=== PATIENT | male | born 1950 | race Caucasian/White ===

== ENCOUNTER 2019-10-08 11:36 | Inpatient (IN) | payer MEDICARE, OTHER ==
[~2019-10-08] VITALS: Ht 185.4 cm; Wt 83.5 kg
[2019-10-08] VITALS (10 sets, daily range): BP systolic 112–167; BP diastolic 74–94
--- NOTE | 2019-10-08 11:40 | PHYS DOC ---
Past Medical History Past Medical History: CAD Past Surgical History: Coronary Bypass Surgery Smoking Status: Former Smoker General Adult EDM: Chief Complaint: CHEST PAIN-CARDIAC NATURE HPI: HPI: Patient is a 69-year-old male who presents with 30 to 40 minutes of substernal crushing chest pain radiating to his jaw arms and back. Pain was 10 out of 10 at the most severity and currently 7 after getting 50 mcg of no prior to arrival. Pain was better with the fentanyl and worse with exertion. Patient endorses nausea diaphoresis and shortness of breath. Pain is described as pressure in nature Review of Systems: Review of Systems: Constitutional: Denies fever or chills. [] Eyes: Denies change in visual acuity. [] HENT: Denies nasal congestion or sore throat. [] Respiratory: Complains of shortness of breath Cardiovascular: Complains of chest pain GI: Complains of nausea : Denies dysuria. [] Musculoskeletal: Complains of back pain Integument: Denies rash. [] Neurologic: Denies headache, focal weakness or sensory changes. [] Endocrine: Denies polyuria or polydipsia. [] Lymphatic: Denies swollen glands. [] Psychiatric: Denies depression or anxiety. [] Heart Score: Risk Factors: Risk Factors: DM, Current or recent (<one month) smoker, HTN, HLP, family history of CAD, obesity. Risk Scores: Score 0 - 3: 2.5% MACE over next 6 weeks - Discharge Home Score 4 - 6: 20.3% MACE over next 6 weeks - Admit for Clinical Observation Score 7 - 10: 72.7% MACE over next 6 weeks - Early Invasive Strategies Physical Exam: PE: Constitutional: Well developed, well nourished, moderate distress HENT: Normocephalic, atraumatic, bilateral external ears normal, no trismus, nose normal. [] Eyes: PERRLA, EOMI, conjunctiva normal, no discharge. [] Neck: Normal range of motion, no tenderness, supple, no stridor. [] Cardiovascular:Heart rate regular rhythm, peripheral pulses intact cap refill brisk Lungs & Thorax: Bilateral breath sounds clear, no respiratory distress Abdomen: soft, no tenderness, no masses, no pulsatile masses. [] Skin: Pale and diaphoretic Back: No tenderness, no CVA tenderness. [] Extremities: No tenderness, no cyanosis, no clubbing, ROM intact, no edema. [] Neurologic: Alert and oriented X 3, normal motor function, normal sensory function, no focal deficits noted. [] Psychologic: Affect normal, judgement normal, mood normal. [] Current Patient Data: Labs: Laboratory Tests Test 10/08/19 11:37 White Blood Count 9.7 x10^3/uL Red Blood Count 4.95 x10^6/uL Hemoglobin 14.8 g/dL Hematocrit 44.3 % Mean Corpuscular Volume 90 fL Mean Corpuscular Hemoglobin 30 pg Mean Corpuscular Hemoglobin Concent 34 g/dL Red Cell Distribution Width 13.6 % Platelet Count 267 x10^3/uL Neutrophils (%) (Auto) 36 % Lymphocytes (%) (Auto) 52 % Monocytes (%) (Auto) 8 % Eosinophils (%) (Auto) 3 % Basophils (%) (Auto) 1 % Neutrophils # (Auto) 3.5 x10^3/uL Lymphocytes # (Auto) 5.0 x10^3/uL Monocytes # (Auto) 0.8 x10^3/uL Eosinophils # (Auto) 0.3 x10^3/uL Basophils # (Auto) 0.1 x10^3/uL Sodium Level 137 mmol/L Potassium Level 4.3 mmol/L Chloride Level 102 mmol/L Carbon Dioxide Level 24 mmol/L Anion Gap 11 Blood Urea Nitrogen 20 mg/dL Creatinine 1.5 mg/dL Estimated GFR (Cockcroft-Gault) 46.3 BUN/Creatinine Ratio 13 Glucose Level 116 mg/dL Calcium Level 9.5 mg/dL Total Bilirubin 0.3 mg/dL Aspartate Amino Transf (AST/SGOT) 22 U/L Alanine Aminotransferase (ALT/SGPT) 36 U/L Alkaline Phosphatase 59 U/L Troponin I Quantitative < 0.017 ng/mL Total Protein 6.5 g/dL Albumin 3.8 g/dL Albumin/Globulin Ratio 1.4 Current Medications Medications (Trade) Dose Ordered Sig/Jade Route PRN Reason Start Time Stop Time Status Last Admin Dose Admin Heparin Sodium (Porcine) (Heparin Sodium) 4,000 unit 1X ONCE IV 10/08/19 11:45 10/08/19 11:47 DC 10/08/19 11:49 Heparin Sodium (Porcine) (Heparin Sodium) 10,000 unit STK-MED ONCE .ROUTE 10/08/19 11:47 10/08/19 11:47 DC Ondansetron HCl (Zofran) 4 mg PRN Q8HRS PRN IV NAUSEA/VOMITING 10/08/19 12:00 10/09/19 11:59 Morphine Sulfate (Morphine Sulfate) 4 mg 1X ONCE IV 10/08/19 12:00 10/08/19 12:01 DC 10/08/19 12:03 Ondansetron HCl (Zofran) 4 mg 1X ONCE IVP 10/08/19 12:00 10/08/19 12:01 DC 10/08/19 12:00 Morphine Sulfate (Morphine Sulfate) 4 mg STK-MED ONCE .ROUTE 10/08/19 11:58 10/08/19 11:58 DC Iodixanol (Visipaque 320) 100 ml STK-MED ONCE .ROUTE 10/08/19 11:58 10/08/19 11:58 DC Lidocaine HCl (Lidocaine 1% 20ml Vial) 20 ml STK-MED ONCE .ROUTE 10/08/19 11:58 10/08/19 11:58 DC Heparin Sodium/ Sodium Chloride 1,000 ml @ As Directed STK-MED ONCE .ROUTE 10/08/19 11:58 10/08/19 11:58 DC Fentanyl Citrate (Fentanyl 2ml Vial) 100 mcg STK-MED ONCE .ROUTE 10/08/19 11:59 10/08/19 11:59 DC Midazolam HCl (Versed) 2 mg STK-MED ONCE .ROUTE 10/08/19 12:00 10/08/19 12:00 DC Bivalirudin (Angiomax) 250 mg STK-MED ONCE IV 10/08/19 12:00 10/08/19 12:01 DC Laboratory Tests Test 10/08/19 11:37 White Blood Count 9.7 x10^3/uL Red Blood Count 4.95 x10^6/uL Hemoglobin 14.8 g/dL Hematocrit 44.3 % Mean Corpuscular Volume 90 fL Mean Corpuscular Hemoglobin 30 pg Mean Corpuscular Hemoglobin Concent 34 g/dL Red Cell Distribution Width 13.6 % Platelet Count 267 x10^3/uL Neutrophils (%) (Auto) 36 % Lymphocytes (%) (Auto) 52 % Monocytes (%) (Auto) 8 % Eosinophils (%) (Auto) 3 % Basophils (%) (Auto) 1 % Neutrophils # (Auto) 3.5 x10^3/uL Lymphocytes # (Auto) 5.0 x10^3/uL Monocytes # (Auto) 0.8 x10^3/uL Eosinophils # (Auto) 0.3 x10^3/uL Basophils # (Auto) 0.1 x10^3/uL Sodium Level 137 mmol/L Potassium Level 4.3 mmol/L Chloride Level 102 mmol/L Carbon Dioxide Level 24 mmol/L Anion Gap 11 Blood Urea Nitrogen 20 mg/dL Creatinine 1.5 mg/dL Estimated GFR (Cockcroft-Gault) 46.3 BUN/Creatinine Ratio 13 Glucose Level 116 mg/dL Calcium Level 9.5 mg/dL Total Bilirubin Pending Aspartate Amino Transf (AST/SGOT) Pending Alanine Aminotransferase (ALT/SGPT) Pending Alkaline Phosphatase Pending Total Protein Pending Albumin Pending Albumin/Globulin Ratio Pending Current Medications Medications (Trade) Dose Ordered Sig/Jade Route PRN Reason Start Time Stop Time Status Last Admin Dose Admin Heparin Sodium (Porcine) (Heparin Sodium) 4,000 unit 1X ONCE IV 10/08/19 11:45 10/08/19 11:47 DC 10/08/19 11:49 Heparin Sodium (Porcine) (Heparin Sodium) 10,000 unit STK-MED ONCE .ROUTE 10/08/19 11:47 10/08/19 11:47 DC Ondansetron HCl (Zofran) 4 mg PRN Q8HRS PRN IV NAUSEA/VOMITING 10/08/19 12:00 10/09/19 11:59 Morphine Sulfate (Morphine Sulfate) 4 mg 1X ONCE IV 10/08/19 12:00 10/08/19 12:01 DC Ondansetron HCl (Zofran) 4 mg 1X ONCE IVP 10/08/19 12:00 10/08/19 12:01 DC Morphine Sulfate (Morphine Sulfate) 4 mg STK-MED ONCE .ROUTE 10/08/19 11:58 10/08/19 11:58 DC Iodixanol (Visipaque 320) 100 ml STK-MED ONCE .ROUTE 10/08/19 11:58 10/08/19 11:58 DC Lidocaine HCl (Lidocaine 1% 20ml Vial) 20 ml STK-MED ONCE .ROUTE 10/08/19 11:58 10/08/19 11:58 DC Heparin Sodium/ Sodium Chloride 1,000 ml @ As Directed STK-MED ONCE .ROUTE 10/08/19 11:58 10/08/19 11:58 DC Fentanyl Citrate (Fentanyl 2ml Vial) 100 mcg STK-MED ONCE .ROUTE 10/08/19 11:59 10/08/19 11:59 DC Midazolam HCl (Versed) 2 mg STK-MED ONCE .ROUTE 10/08/19 12:00 10/08/19 12:00 DC Bivalirudin (Angiomax) 250 mg STK-MED ONCE IV 10/08/19 12:00 10/08/19 12:01 DC Vital Signs: Vital Signs Date Time Temp Pulse Resp B/P (MAP) Pulse Ox O2 Delivery O2 Flow Rate FiO2 10/08/19 11:37 98.2 65 22 127/85 (99) 99 Nasal Cannula 2.0 98.2 EKG: EKG: [] EKG interpreted by nj normal sinus rhythm with a rate of [address] depressions T wave inversions in V1 through V4 normal axis Radiology/Procedures: Radiology/Procedures: [][facility] [address] [place] [address] IMAGING REPORT Signed PATIENT: HYUN JENKINS PACCOUNT: [id number] : 1950 LOCATION: ER AGE: 69 SEX: M EXAM STATUS: PRE ER ORD. PHYSICIAN: RHODA BAILEY MD REASON: PROCEDURE: PORTABLE CHEST 1V Single view chest dated 10/08/2019. No comparison available. Clinical data indication: Chest pain. FINDINGS: Single upright portable exam performed. Heart and mediastinal contours within normal limits. Patient is status post median sternotomy. Elevation of left hemidiaphragm. There is some patchy and linear perihilar opacities, nonspecific. No apparent pleural effusion or pneumothorax. IMPRESSION: 1. No acute radiographic abnormality. 2. Mildly prominent perihilar linear markings, nonspecific. Consider acute or chronic bronchial inflammatory process. Electronically signed by: Sudhir Ramirez MD (10/08/2019 12:00 PM) [id number] DICTATED and SIGNED BY: SUDHIR RAMIREZ MD DATE: 10/08/19 1200 Course & Med Decision Making: Course & Med Decision Making Pertinent Labs and Imaging studies reviewed. (See chart for details) 69-year-old male presents with chest pain. Code STEMI was activated prior to arrival and I discussed the case with Dr. WHITE. EKG here reveals more prominent ST depressions in V1 through V4. Patient looks acutely ill and is diaphoretic. His story is very concerning for acute posterior myocardial infarction. Patient received aspirin prior to arrival. Patient was given heparin bolus here and will go to the [facility]. Evaluated by cardiology within 15 minutes of arrival. I discussed case with Dr. Her who admit the patient. Patient to [facility] within 35 minutes of arrival. Several reassessments in the ER and patient remains having significant chest pain. Critical care time was [30] minutes exclusive of procedures. Critical care time was [30] minutes which includes time at bedside, spent in discussion of patient's care with specialist and/or family members, with interpretation of laboratory and/or radiological studies and is exclusive of procedures. Critical condition: Acute posterior ST elevation myocardial infarction Critical interventions: [facility] activation admission to the hospital with heparin bolus. [] Dragon Disclaimer: Dragon Disclaimer: This electronic medical record was generated, in whole or in part, using a voice recognition dictation system. Departure Departure Impression: Primary Impression: Acute ST elevation myocardial infarction (STEMI) of posterior wall Additional Impression: Chest pain Disposition: ADMITTED INPATIENT Admitting Physician: MERY (BHAVESH) Condition: CRITICAL Referrals: UNKNOWN PCP NAME (PCP) Justicifation of Admission Dx: Justifications for Admission: Justification of Admission Dx: Yes NV: Acute STEMI RHODA BAILEY MD Oct 08, 2019 11:40
[2019-10-08] MEDS ORDERED: HEPARIN for IV BOLUS 10,000 UNIT/10 ML VIAL. IV ONE (11:45)
[2019-10-08] MEDS ORDERED: HEPARIN for IV BOLUS 10,000 UNIT/10 ML VIAL. ONE (11:47)
[2019-10-08 11:54] LABS: BASO # 0.1 x10^3/uL (0.0-0.2); BASO % 1 % (0-3); EOS # 0.3 x10^3/uL (0.0-0.7); EOS % 3 % (0-3); HEMATOCRIT 44.3 % (39.0-53.0); HEMOGLOBIN 14.8 g/dL (13.0-17.5); LYMPH % 52 % (24-48); MEAN CORPUSCULAR HEMOGLOBIN 30 pg (25-35); MEAN CORPUSCULAR HGB CONC 34 g/dL (31-37); MEAN CORPUSCULAR VOLUME 90 fL (79-100); MONO # 0.8 x10^3/uL (0.0-1.1); MONO % 8 % (0-9); NEUT # 3.5 x10^3/uL (1.8-7.7); NEUT % 36 % (31-73); PLATELET COUNT 267 x10^3/uL (140-400); RED BLOOD COUNT 4.95 x10^6/uL (4.30-5.70); RED CELL DISTRIBUTION WIDTH 13.6 % (11.5-14.5); WHITE BLOOD COUNT 9.7 x10^3/uL (4.0-11.0)
--- NOTE | 2019-10-08 11:55 | PDOC1 ---
History and Physical Date of Admission Date of Admission DATE: 10/08/19 TIME: 11:55 Identification/Chief Complaint Chief Complaint seen in ER WITH ACUTE STEMI 69-year-old male who presents with 30 to 40 minutes of substernal crushing chest pain radiating to his jaw arms and back. Pain was 10 out of 10 at the most severity and currently 7 after getting 50 mcg of no prior to arrival. Pain was better with the fentanyl and worse with exertion. endorses nausea diaphoresis and shortness of breath EKG CONCERNING FOR INFERIOR NM Past Medical History Past Medical History Past Medical History Past Medical History Past Medical History: CAD Past Surgical History: Coronary Bypass Surgery [facility] Smoking Status: Former Smoker ETOH MINIMAL sees climatologist [facility] FHX CAD Cardiovascular: CAD, Hyperlipidemia Hepatobiliary: No pertinent hx Family History Family History: High Cholestrol, Hypertension Social History Smoke: Quit ALCOHOL: none Drugs: None Current Problem List Problem List Problems Medical Problems: (1) Acute ST elevation myocardial infarction (STEMI) of posterior wall Status: Acute Current Medications Current Medications Current Medications Heparin Sodium (Porcine) (Heparin Sodium) 4,000 unit 1X ONCE IV Last administered on 10/08/19at 11:49; Start 10/08/19 at 11:45; Stop 10/08/19 at 11:47; Status DC Heparin Sodium (Porcine) (Heparin Sodium) 10,000 unit STK-MED ONCE .ROUTE ; Start 10/08/19 at 11:47; Stop 10/08/19 at 11:47; Status DC Ondansetron HCl (Zofran) 4 mg PRN Q8HRS PRN IV NAUSEA/VOMITING; Start 10/08/19 at 12:00; Stop 10/09/19 at 11:59; Status UNV Allergies Allergies: Coded Allergies: No Known Drug Allergies (Unverified , 10/08/19) ROS Review of System Review of Systems: Constitutional: Denies fever or chills. [] Eyes: Denies change in visual acuity. [] HENT: Denies nasal congestion or sore throat. [] Respiratory: Complains of shortness of breath Cardiovascular: Complains of chest pain GI: Complains of nausea : Denies dysuria. [] Musculoskeletal: Complains of back pain Integument: Denies rash. [] Neurologic: Denies headache, focal weakness or sensory changes. [] Endocrine: Denies polyuria or polydipsia. [] Lymphatic: Denies swollen glands. [] Psychiatric: Denies depression or anxiety. [] 14 PT ROS OTHERWISE NEG ALLERGY AND IMMUNOLOGY: No: Hives, Insect Bite Sensitivity, Itchy/Watery Eyes, Nasal Congestion, Post Nasal Drip, Seasonal Allergies, Other Hematological and Lymphatic: No: Bleeding Problems, Blood Clots, Blood Transfusions, Brusing, Night Sweats, Pallor, Swollen Lymph Nodes, Other Cardiovascular: yes Chest Pain; No Palpitations, No Orthopnea, No Paroxysmal Noc. Dyspnea, No Edema, No Lt Headedness, No Other Gastrointestinal: Yes Nausea; No Vomiting, No Abdominal Pain, No Diarrhea, No Constipation, No Melena, No Hematochezia, No Other Musculoskeletal: No Gait Disturbance, No Joint Pain, No Joint Stiffness, No Joint Swelling, No Muscle Pain, No Muscular Weakness, No Pain In:, No Swelling In:, No Other Neurological: No Behavorial Changes, No Bowel/Bladder ControlChng, No Confusion, No Dizziness, No Gait Disturbance, No Headaches, No Impaired Coord/balance, No Memory Loss, No Numbness/Tingling, No Seizures, No Speech Problems, No Tremors, No Visual Changes, No Weakness, No Other Physical Exam Physical Exam Constitutional: Well developed, well nourished, moderate distress HENT: Normocephalic, atraumatic, bilateral external ears normal, no trismus, nose normal. [] Eyes: PERRLA, EOMI, conjunctiva normal, no discharge. [] Neck: Normal range of motion, no tenderness, supple, no stridor. [] Cardiovascular:Heart rate regular rhythm, peripheral pulses intact cap refill brisk Lungs & Thorax: Bilateral breath sounds clear, no respiratory distress Abdomen: soft, no tenderness, no masses, no pulsatile masses. [] Skin: Pale and diaphoretic Back: No tenderness, no CVA tenderness. [] Extremities: No tenderness, no cyanosis, no clubbing, ROM intact, no edema. [] Neurologic: Alert and oriented X 3, normal motor function, normal sensory function, no focal deficits noted. [] Psychologic: Affect normal, judgement normal, mood normal. [] General: Alert, Oriented X3, Cooperative HEENT: Atraumatic, PERRLA, EOMI, Mucous membr. moist/pink Lungs: Clear to auscultation, Normal air movement Heart: RRR, no thrills, no jug vein distention Breasts: Not examined Abdomen: Normal bowel sounds, Soft, No tenderness Rectal Exam: not examined Extremities: No cyanosis Neuro: Normal speech, Cranial nerves 3-12 NL Psych/Mental Status: Mental status NL, Mood NL Images Images Single view chest dated 10/08/2019. No comparison available. Clinical data indication: Chest pain. FINDINGS: Single upright portable exam performed. Heart and mediastinal contours within normal limits. Patient is status post median sternotomy. Elevation of left hemidiaphragm. There is some patchy and linear perihilar opacities, nonspecific. No apparent pleural effusion or pneumothorax. IMPRESSION: 1. No acute radiographic abnormality. 2. Mildly prominent perihilar linear markings, nonspecific. Consider acute or chronic bronchial inflammatory process. Electronically signed by: Sabrina Ramirez MD (10/08/2019 12:00 PM) [id number] DICTATED and SIGNED BY: SABRINA RAMIREZ MD DATE: 10/08/19 1200 VTE Prophylaxis Ordered VTE Prophylaxis Devices: Yes VTE Pharmacological Prophylaxi: Yes Assessment/Plan Assessment/Plan Impression: Acute ST elevation myocardial infarction (STEMI) of posterior wall hx cad post CABG Chest pain UNSTABLE remote tobacco abuse ADMITTED CONSULT CARDIOLOGY Heparin drip ICU BED 40 MIN CC TIME Justicifation of Admission Dx: Justifications for Admission: Justification of Admission Dx: Yes NM: Acute STEMI STORMY OSPINA MD Oct 08, 2019 11:55
[2019-10-08] MEDS ORDERED: LIDOCAINE 1% Multi-Dose 20 ML VIAL. ONE (11:58)
[2019-10-08] MEDS ORDERED: IODIXANOL 320 MG/ML 100 ML VIAL. ONE ×2 (11:58→12:33)
[2019-10-08] MEDS ORDERED: MORPHINE SULFATE 4 MG/ML VIAL. ONE (11:58)
[2019-10-08] MEDS ORDERED: fentaNYL PF VIAL 100 MCG/2 ML VIAL ONE (11:59)
[2019-10-08] MEDS ORDERED: ONDANSETRON PF 4 MG/2 ML VIAL. IV PRN (12:00)
[2019-10-08] MEDS ORDERED: ONDANSETRON PF 4 MG/2 ML VIAL. IVP ONE (12:00)
[2019-10-08] MEDS ORDERED: BIVALIRUDIN 250 MG VIAL. IV ONE ×2 (12:00→13:00)
[2019-10-08] MEDS ORDERED: MIDAZOLAM HCL/PF 2 MG/2 ML VIAL. ONE (12:00)
[2019-10-08] MEDS ORDERED: MORPHINE SULFATE 4 MG/ML VIAL. IV ONE (12:00)
[2019-10-08 12:03] LABS: CALCIUM 9.5 mg/dL (8.5-10.1); CREATININE 1.5 mg/dL (0.7-1.3); GFR 46.3; POTASSIUM 4.3 mmol/L (3.5-5.1)
--- NOTE | 2019-10-08 12:03 | RAD ---
Single view chest dated 10/08/2019. No comparison available. Clinical data indication: Chest pain. FINDINGS: Single upright portable exam performed. Heart and mediastinal contours within normal limits. Patient is status post median sternotomy. Elevation of left hemidiaphragm. There is some patchy and linear perihilar opacities, nonspecific. No apparent pleural effusion or pneumothorax. IMPRESSION: 1. No acute radiographic abnormality. 2. Mildly prominent perihilar linear markings, nonspecific. Consider acute or chronic bronchial inflammatory process. Electronically signed by: Sudhir Ramirez MD (10/08/2019 12:00 PM) [id number]
[2019-10-08 12:10] LABS: ALBUMIN 3.8 g/dL (3.4-5.0); ALBUMIN/GLOBULIN RATIO 1.4 (1.0-1.7); TOTAL BILIRUBIN 0.3 mg/dL (0.2-1.0); TOTAL PROTEIN 6.5 g/dL (6.4-8.2)
[2019-10-08 12:26] LABS: PROTHROMBIN TIME PATIENT 12.5 SEC (11.7-14.0)
[2019-10-08] MEDS ORDERED: ATEN25TA PO (12:37)
[2019-10-08] MEDS ORDERED: IODIXANOL 320 MG/ML 100 ML VIAL. IART ONE (13:00)
[2019-10-08] MEDS ORDERED: fentaNYL PF VIAL 100 MCG/2 ML VIAL IV ONE (13:00)
[2019-10-08] MEDS ORDERED: LIDOCAINE 1% Multi-Dose 20 ML VIAL. INJ ONE (13:00)
[2019-10-08] MEDS ORDERED: MIDAZOLAM HCL/PF 2 MG/2 ML VIAL. IV ONE (13:00)
[2019-10-08] MEDS ORDERED: CLOPIDOGREL BISULFATE 75 MG TABLET ONE ×2 (13:03→13:11)
[2019-10-08] MEDS ORDERED: CLOPIDOGREL BISULFATE 75 MG TABLET PO ONE (13:15)
[2019-10-08] MEDS ORDERED: 0.9 % SODIUM CHLORIDE 10 ML DISP.SYRIN. IV PRN (13:30)
[2019-10-08] MEDS ORDERED: BISACODYL 10 MG SUPP.RECT. PR PRN (13:30)
--- NOTE | 2019-10-08 13:32 | PDOC2 ---
CONSULT Date of Consult Date of Consult DATE: 10/08/19 TIME: 13:32 Reason for Consult Reason for Consult: Acute myocardial infarction Referring Physician Referring Physician: Dr. Her Identification/Chief Complaint Chief Complaint Chest pain Source Source: Chart review, Patient History of Present Illness Reason for Visit: 69-year-old male with history of coronary artery disease s/p CABG 20 to 25 years ago usually followed by cardiology at [facility] presented complaining of retrosternal chest pain that he described as pressure-like and crushing pain, 10/10 severity radiating to his back, jaw and both his arms, starting 1 hour prior to presentation. This is associated with diaphoresis and shortness of breath. He denied any palpitations or syncope. Past Medical History Cardiovascular: CAD, Hyperlipidemia Hepatobiliary: No pertinent hx Family History Family History: High Cholestrol, Hypertension Social History Quit ALCOHOL: none Drugs: None Current Problem List Problem List Problems Medical Problems: (1) Acute ST elevation myocardial infarction (STEMI) of posterior wall Status: Acute (2) Chest pain Status: Acute Current Medications Current Medications Current Medications Heparin Sodium (Porcine) (Heparin Sodium) 4,000 unit 1X ONCE IV Last administered on 10/08/19at 11:49; Start 10/08/19 at 11:45; Stop 10/08/19 at 11:47; Status DC Heparin Sodium (Porcine) (Heparin Sodium) 10,000 unit STK-MED ONCE .ROUTE ; Start 10/08/19 at 11:47; Stop 10/08/19 at 11:47; Status DC Ondansetron HCl (Zofran) 4 mg PRN Q8HRS PRN IV NAUSEA/VOMITING; Start 10/08/19 at 12:00; Stop 10/09/19 at 11:59 Morphine Sulfate (Morphine Sulfate) 4 mg 1X ONCE IV Last administered on 10/08/19at 12:03; Start 10/08/19 at 12:00; Stop 10/08/19 at 12:01; Status DC Ondansetron HCl (Zofran) 4 mg 1X ONCE IVP Last administered on 10/08/19at 12:00; Start 10/08/19 at 12:00; Stop 10/08/19 at 12:01; Status DC Morphine Sulfate (Morphine Sulfate) 4 mg STK-MED ONCE .ROUTE ; Start 10/08/19 at 11:58; Stop 10/08/19 at 11:58; Status DC Iodixanol (Visipaque 320) 100 ml STK-MED ONCE .ROUTE ; Start 10/08/19 at 11:58; Stop 10/08/19 at 11:58; Status DC Lidocaine HCl (Lidocaine 1% 20ml Vial) 20 ml STK-MED ONCE .ROUTE ; Start 10/08/19 at 11:58; Stop 10/08/19 at 11:58; Status DC Heparin Sodium/ Sodium Chloride 1,000 ml @ As Directed STK-MED ONCE .ROUTE ; Start 10/08/19 at 11:58; Stop 10/08/19 at 11:58; Status DC Fentanyl Citrate (Fentanyl 2ml Vial) 100 mcg STK-MED ONCE .ROUTE ; Start 10/08/19 at 11:59; Stop 10/08/19 at 11:59; Status DC Midazolam HCl (Versed) 2 mg STK-MED ONCE .ROUTE ; Start 10/08/19 at 12:00; Stop 10/08/19 at 12:00; Status DC Bivalirudin (Angiomax) 250 mg STK-MED ONCE IV ; Start 10/08/19 at 12:00; Stop 10/08/19 at 12:01; Status DC Iodixanol (Visipaque 320) 100 ml STK-MED ONCE .ROUTE ; Start 10/08/19 at 12:33; Stop 10/08/19 at 12:33; Status DC Heparin Sodium/ Sodium Chloride (HEPARIN for ARTERIAL LINE FLUSH) 1,000 unit 1X ONCE IART ; Start 10/08/19 at 13:00; Stop 10/08/19 at 13:01; Status DC Midazolam HCl (Versed) 2 mg 1X ONCE IV Last administered on 10/08/19at 13:15; Start 10/08/19 at 13:00; Stop 10/08/19 at 13:01; Status DC Fentanyl Citrate (Fentanyl 2ml Vial) 100 mcg 1X ONCE IV Last administered on 10/08/19at 13:15; Start 10/08/19 at 13:00; Stop 10/08/19 at 13:01; Status DC Iodixanol (Visipaque 320) 100 ml 1X ONCE IART Last administered on 10/08/19at 13:14; Start 10/08/19 at 13:00; Stop 10/08/19 at 13:01; Status DC Bivalirudin (Angiomax) 250 mg 1X ONCE IV Last administered on 10/08/19at 13:15; Start 10/08/19 at 13:00; Stop 10/08/19 at 13:01; Status DC Lidocaine HCl (Lidocaine 1% 20ml Vial) 20 ml 1X ONCE INJ Last administered on 10/08/19at 13:14; Start 10/08/19 at 13:00; Stop 10/08/19 at 13:01; Status DC Clopidogrel Bisulfate (Plavix) 75 mg STK-MED ONCE .ROUTE ; Start 10/08/19 at 13 :03; Stop 10/08/19 at 13:03; Status DC Clopidogrel Bisulfate (Plavix) 600 mg 1X ONCE PO Last administered on 10/08/19at 13:14; Start 10/08/19 at 13:15; Stop 10/08/19 at 13:16; Status DC Clopidogrel Bisulfate (Plavix) 75 mg STK-MED ONCE .ROUTE ; Start 10/08/19 at 13:11; Stop 10/08/19 at 13:11; Status DC Atenolol (Tenormin) 25 mg DAILY PO ; Start 10/08/19 at 14:00 Lorazepam (Ativan Inj) 0.5 mg PRN Q6HRS PRN IVP ANXIETY / AGITATION; Start 10/08/19 at 13:30; Status UNV Famotidine (Pepcid) 20 mg BID PO ; Start 10/08/19 at 21:00; Status UNV Info (Icu Electrolyte Protocol) 1 ea DAILY MC ; Start 10/09/19 at 09:00; Status UNV Sodium Chloride (Normal Saline Flush) 3 ml QSHIFT PRN IV AFTER MEDS AND BLOOD DRAWS; Start 10/08/19 at 13:30; Status UNV Acetaminophen/ Hydrocodone Bitart (Lortab 5/325) 1 tab PRN Q4HRS PRN PO MILD PAIN, 2ND CHOICE; Start 10/08/19 at 13:30; Status UNV Senna/Docusate Sodium (Senna Plus) 1 tab BID PO ; Start 10/08/19 at 21:00; Status UNV Bisacodyl (Dulcolax Supp) 10 mg PRN DAILY PRN [place] CONSTIPATION; Start 10/08/19 at 13:30; Status UNV Active Scripts Active Reported Atenolol 25 Mg Tablet 1 Tab PO DAILY Allergies Allergies: Coded Allergies: No Known Drug Allergies (Unverified , 10/08/19) ROS PSYCHOLOGICAL ROS: No: Hallucinations Eyes: No Loss of vision HEENT: No: Epistaxis Respiratory: YES: Shortness of breath; No: Hemoptysis Cardiovascular: yes Chest Pain; No Palpitations Gastrointestinal: No Vomiting, No Diarrhea Genitourinary: No Hematuria Neurological: No Seizures Skin: No Rash Physical Exam General: Alert, Oriented X3 HEENT: Atraumatic Lungs: Clear to auscultation Heart: Regular rate Abdomen: Soft Extremities: No edema Neuro: Normal speech Psych/Mental Status: Mood NL Vitals VITALS Vital Signs Date Time Temp Pulse Resp B/P (MAP) Pulse Ox O2 Delivery O2 Flow Rate FiO2 10/08/19 13:22 67 15 99 Nasal Cannula 2.0 10/08/19 11:57 130/86 (101) 10/08/19 11:37 98.2 98.2 Labs Labs Laboratory Tests Test 10/08/19 11:37 10/08/19 11:40 White Blood Count 9.7 x10^3/uL (4.0-11.0) Red Blood Count 4.95 x10^6/uL (4.30-5.70) Hemoglobin 14.8 g/dL (13.0-17.5) Hematocrit 44.3 % (39.0-53.0) Mean Corpuscular Volume 90 fL (79-100) Mean Corpuscular Hemoglobin 30 pg (25-35) Mean Corpuscular Hemoglobin Concent 34 g/dL (31-37) Red Cell Distribution Width 13.6 % (11.5-14.5) Platelet Count 267 x10^3/uL (140-400) Neutrophils (%) (Auto) 36 % (31-73) Lymphocytes (%) (Auto) 52 % (24-48) Monocytes (%) (Auto) 8 % (0-9) Eosinophils (%) (Auto) 3 % (0-3) Basophils (%) (Auto) 1 % (0-3) Neutrophils # (Auto) 3.5 x10^3/uL (1.8-7.7) Lymphocytes # (Auto) 5.0 x10^3/uL (1.0-4.8) Monocytes # (Auto) 0.8 x10^3/uL (0.0-1.1) Eosinophils # (Auto) 0.3 x10^3/uL (0.0-0.7) Basophils # (Auto) 0.1 x10^3/uL (0.0-0.2) Prothrombin Time 12.5 SEC (11.7-14.0) Prothromb Time International Ratio 1.0 (0.8-1.1) Activated Partial Thromboplast Time 25 SEC (24-38) Sodium Level 137 mmol/L (136-145) Potassium Level 4.3 mmol/L (3.5-5.1) Chloride Level 102 mmol/L (98-107) Carbon Dioxide Level 24 mmol/L (21-32) Anion Gap 11 (6-14) Blood Urea Nitrogen 20 mg/dL (8-26) Creatinine 1.5 mg/dL (0.7-1.3) Estimated GFR (Cockcroft-Gault) 46.3 BUN/Creatinine Ratio 13 (6-20) Glucose Level 116 mg/dL (70-99) Calcium Level 9.5 mg/dL (8.5-10.1) Total Bilirubin 0.3 mg/dL (0.2-1.0) Aspartate Amino Transf (AST/SGOT) 22 U/L (15-37) Alanine Aminotransferase (ALT/SGPT) 36 U/L (16-63) Alkaline Phosphatase 59 U/L (46-116) Troponin I Quantitative < 0.017 ng/mL (0.000-0.055) AE-Ofv-G-Type Natriuretic Peptide 170 pg/mL (0-124) Total Protein 6.5 g/dL (6.4-8.2) Albumin 3.8 g/dL (3.4-5.0) Albumin/Globulin Ratio 1.4 (1.0-1.7) SARS-CoV-2 Antigen (Rapid) Negative (NEGATIVE) Laboratory Tests Test 10/08/19 11:37 10/08/19 11:40 White Blood Count 9.7 x10^3/uL (4.0-11.0) Red Blood Count 4.95 x10^6/uL (4.30-5.70) Hemoglobin 14.8 g/dL (13.0-17.5) Hematocrit 44.3 % (39.0-53.0) Mean Corpuscular Volume 90 fL (79-100) Mean Corpuscular Hemoglobin 30 pg (25-35) Mean Corpuscular Hemoglobin Concent 34 g/dL (31-37) Red Cell Distribution Width 13.6 % (11.5-14.5) Platelet Count 267 x10^3/uL (140-400) Neutrophils (%) (Auto) 36 % (31-73) Lymphocytes (%) (Auto) 52 % (24-48) Monocytes (%) (Auto) 8 % (0-9) Eosinophils (%) (Auto) 3 % (0-3) Basophils (%) (Auto) 1 % (0-3) Neutrophils # (Auto) 3.5 x10^3/uL (1.8-7.7) Lymphocytes # (Auto) 5.0 x10^3/uL (1.0-4.8) Monocytes # (Auto) 0.8 x10^3/uL (0.0-1.1) Eosinophils # (Auto) 0.3 x10^3/uL (0.0-0.7) Basophils # (Auto) 0.1 x10^3/uL (0.0-0.2) Prothrombin Time 12.5 SEC (11.7-14.0) Prothromb Time International Ratio 1.0 (0.8-1.1) Activated Partial Thromboplast Time 25 SEC (24-38) Sodium Level 137 mmol/L (136-145) Potassium Level 4.3 mmol/L (3.5-5.1) Chloride Level 102 mmol/L (98-107) Carbon Dioxide Level 24 mmol/L (21-32) Anion Gap 11 (6-14) Blood Urea Nitrogen 20 mg/dL (8-26) Creatinine 1.5 mg/dL (0.7-1.3) Estimated GFR (Cockcroft-Gault) 46.3 BUN/Creatinine Ratio 13 (6-20) Glucose Level 116 mg/dL (70-99) Calcium Level 9.5 mg/dL (8.5-10.1) Total Bilirubin 0.3 mg/dL (0.2-1.0) Aspartate Amino Transf (AST/SGOT) 22 U/L (15-37) Alanine Aminotransferase (ALT/SGPT) 36 U/L (16-63) Alkaline Phosphatase 59 U/L (46-116) Troponin I Quantitative < 0.017 ng/mL (0.000-0.055) LJ-Vjn-Y-Type Natriuretic Peptide 170 pg/mL (0-124) Total Protein 6.5 g/dL (6.4-8.2) Albumin 3.8 g/dL (3.4-5.0) Albumin/Globulin Ratio 1.4 (1.0-1.7) SARS-CoV-2 Antigen (Rapid) Negative (NEGATIVE) Assessment/Plan Assessment/Plan 1. Acute posterior wall myocardial infarction in a patient with known history of coronary artery disease s/p CABG (bilateral internal mammaries were used for CABG per patient, no vein grafts). He has ongoing chest pain. Start aspirin, heparin, beta-blockers, statins and proceed with emergent cardiac catheterization and possible primary PCI/stent placement. Risks and benefits were explained and he is agreeable. 2. Hypertension: Controlled 3. Hyperlipidemia: Statins Thank you for your consultation. TERRENCE DE LA GARZA MD Oct 08, 2019 13:32
[2019-10-08] MEDS ORDERED: IV 1/2 NORMAL SALINE 1,000 ML IV SCH (13:33)
--- NOTE | 2019-10-08 13:33 | PDOC ---
MODERATE SEDATION ASSESSMENT RISKS/ALTERNATIVES Risks/Alternatives Risks and alternatives of this type of sedation and procedure discussed with: RISK/ALTERNATIVES: Patient H & P ON CHART H & P H & P on chart and reviewed for co-morbid conditions and appropriate labs. H&P ON CHART: Yes STATUS PREG STATUS ASSESSED: N/A MEDS/ALLERGIES REVIEWED Meds/Allergies Reviewed Medications and Allergies including time and route of recently administered narcotics and sedatives. MEDS/ALLERGIES REVIEWED: Yes ASA RATING ASA RATING: III AIRWAY ASSESSMENT Airway Assessment Airway patency, oral function limitations, presence of caps, crowns, dentures, partials, and ability to extend neck assessed. AIRWAY ASSESSMENT: Yes MALLAMPATI SCORE MALLAMPATI SCORE: II PRE-SEDATION ASSESSMENT PRE-SEDATION ASSESSMENT: Yes TERRENCE DE LA GARZA MD Oct 08, 2019 13:33
[2019-10-08] MEDS ORDERED: NITROGLYCERIN SUBLINGUAL 0.4 MG BOTTLE OF 25. SL PRN (13:45)
[2019-10-08] MEDS ORDERED: ATENOLOL 25 MG TABLET. PO SCH ×2 (14:00→14:45)
--- NOTE | 2019-10-08 14:00 | CARD ---
MR#: [id number] Date of Study: 10/08/2019 Ordering Physician: TERRENCE HANLEY, Referring Physician: TERRENCE HANLEY, Tech: RT Eliezer (R) KALEB APPROVED REPORT Technologist: RT Eliezer (R) KALEB Nurse: Ana Martins R.N. Procedure(s) performed: 1. Left heart catheterization, selective coronary angiography and selective angiography of the bypass graft 2. Successful complex PCI/drug-eluting stent placement to the left circumflex artery FLUORO TIME: 20.2 MIN DOSE: 143 Gycm2 Contrast 266ml Visi Mod Sedation: 65 min INDICATION The indication(s) include : Acute posterior wall myocardial infarction. [facility] Clinical Frailty Scale [facility] Clinical Frailty Scale: Mildly Frail Heart Failure Heart Failure: No If Yes, Newly Diagnosed: No PROCEDURE NARRATIVE After explaining the risks, benefits and alternative options, and informed consent was obtained from patient. Patient was brought to the cardiac [employer] and his right groin was prepped and draped in t he usual fashion. 20 cc of 2% lidocaine was infiltrated to the skin and subcutaneous tissues for loc al anesthesia. Arterial access was obtained in the right common femoral artery and a 6 American sheath was inserted. 6 American JR4 catheter was used to perform selective angiography of the right coronary artery and left internal mammary graft to the left anterior descending artery. Since patient stated that his right internal mammary artery graft was also used for bypass surgery, right subclavian kimberlyn ography was performed. Since we did not visualize MITCHELL, aortic root angiography was performed at the end of procedure. After initial unsuccessful attempts at engaging the left main coronary artery usi ng 6 American JL4 catheter followed by 6 American XB 3.5 guide catheter, this was successfully engaged wi th a 6 American AL-1 guide catheter and selective angiography was performed. LVEDP and transaortic gra dients were measured. Left ventriculography was not performed due to contrast load used during the p rocedure. The following findings were noted: FINDINGS 1. Hemodynamics: Elevated left ventricular end-diastolic pressure of 23 mmHg consistent with mild ac favio diastolic heart failure. No pullback gradient across the aortic valve. 2. Coronary and bypass graft angiography: a. The left main coronary artery arose from the left sinus of Valsalva, gave rise to the left anteri or descending and left circumflex arteries and did not show any significant stenosis. b. The left anterior descending artery showed 100% occlusion in the midsegment. c. The left circumflex artery showed a critical 99% stenosis involving the very proximal segment wit h MONISHA I flow distally. d. The right coronary artery arose from the right sinus of Valsalva, was tortuous and showed 40% royce nosis in the midsegment. e. The left internal mammary graft to the left anterior descending artery was patent. Distal to the anastomosis, the left anterior descending artery was a small to medium caliber vessel. f. The right internal mammary artery graft that was likely anastomosed with left circumflex artery w as not visualized on subclavian angiography and aortic root angiography and probably occluded. INTERVENTION The left main coronary artery was engaged with AL-1 guide catheter. The critical stenosis involving the very proximal segment of the left circumflex artery was crossed with a 0.014 inch [employer] pro-water guidewire. This was predilated with a 3.0 x 15 mm Euphora balloon. This was then treated with a 3. 5 x 18 mm resolute Vignesh drug-eluting stent. The midportion of the stent was postdilated with a 3.75 x 15 mm noncompliant NC trek balloon. Follow-up angiography showed resolution of the lesion with JUNITO I-3 distal flow. Patient tolerated the procedure well. Hemostasis was achieved using Angio-Seal. T here were no immediate complications. MONISHA Flow MONISHA Flow (Pre-Intervention): MONISHA-1 MONISHA Flow (Post-Intervention): MONISHA-3 Conclusion 1. Coronary artery disease s/p CABG with patent LAM to LAD, occluded MITCHELL probably anastomosed to L Cx, 99% stenosis involving proximal segment of LCx and 40% stenosis in ungrafted RCA 2. Successful PCI/drug-eluting stent placement to the left circumflex artery Recommendations 1. Aspirin 325 mg daily for 1 month followed by 81 mg daily 2. Plavix 75 mg daily 3. Cardiovascular risk factor modification and cardiac rehabilitation referral Signed by : Terrence Hanley, Electronically Approved : 10/08/2019 13:59:25
[2019-10-08] MEDS ORDERED: BUPR150T15 PO (14:38)
[2019-10-08] MEDS ORDERED: METO25TA4 PO (14:38)
[2019-10-08] MEDS ORDERED: FLUT9.9S NS (14:38)
[2019-10-08] MEDS ORDERED: FAMO-63 PO (14:38)
[2019-10-08] MEDS ORDERED: LIPITOR80 MG PO (14:38)
[2019-10-08] MEDS ORDERED: MONT10TA49 PO (14:38)
[2019-10-08] MEDS ORDERED: FLUT1DIS5 IH (14:38)
[2019-10-08] MEDS ORDERED: METO-239 PO (16:39)
[2019-10-08] MEDS ORDERED: METOPROLOL SUCC 24HR ER 25 MG TAB.ER.24H. PO PRN (16:45)
[2019-10-08] MEDS ORDERED: ASPIRIN CHEWABLE 81 MG TABLET. PO ONE (18:30)
[2019-10-08] MEDS: BUDESONIDE 0.5 MG/2 ML NEBU. NEB SCH (20:03)
[2019-10-08] MEDS: ALBUTEROL SULFATE 2.5 MG/3 ML NEBU. NEB SCH (20:03)
[2019-10-08] MEDS: MONTELUKAST SODIUM 10 MG TABLET. PO SCH (20:53)
[2019-10-08] MEDS: ATORVASTATIN CALCIUM 40 MG TABLET. PO SCH (20:53)
[2019-10-08] MEDS: SENNOSIDES/DOCUSATE 8.6/50MG TABLET. PO SCH (20:53)
[2019-10-08] MEDS: FAMOTIDINE 20 MG TABLET. PO SCH (20:53)
[2019-10-08] MEDS: METOPROLOL TART IMMED RELEASE 25 MG TABLET. PO SCH (20:55)
[2019-10-08] MEDS ORDERED: FAMOTIDINE 20 MG TABLET. PO SCH (21:00)
[2019-10-08] MEDS ORDERED: ATORVASTATIN CALCIUM 40 MG TABLET. PO SCH (21:00)
[2019-10-08] MEDS ORDERED: NON FORMULARY ITEM (Fluticasone/Salmeterol (Advair 500-50 Diskus) 1 PUFF) IH SCH (21:00)
[2019-10-08] MEDS: HYDROcodone/APAP 5/325MG 1 TAB TABLET PO PRN (21:26)
[2019-10-08] MEDS: ZOLPIDEM 5 MG TABLET. PO PRN (23:57)
[2019-10-09] VITALS (18 sets, daily range): BP systolic 107–138; BP diastolic 65–85
[2019-10-09] MEDS: HYDROcodone/APAP 5/325MG 1 TAB TABLET PO PRN ×4 (01:32→21:15)
[2019-10-09 04:55] LABS: BASO % 0 % (0-3); EOS # 0.3 x10^3/uL (0.0-0.7); EOS % 4 % (0-3); HEMATOCRIT 42.1 % (39.0-53.0); HEMOGLOBIN 13.9 g/dL (13.0-17.5); LYMPH # 2.2 x10^3/uL (1.0-4.8); LYMPH % 27 % (24-48); MEAN CORPUSCULAR HEMOGLOBIN 30 pg (25-35); MEAN CORPUSCULAR HGB CONC 33 g/dL (31-37); MEAN CORPUSCULAR VOLUME 90 fL (79-100); MONO # 0.8 x10^3/uL (0.0-1.1); MONO % 10 % (0-9); NEUT # 4.7 x10^3/uL (1.8-7.7); NEUT % 59 % (31-73); PLATELET COUNT 217 x10^3/uL (140-400); RED BLOOD COUNT 4.69 x10^6/uL (4.30-5.70); RED CELL DISTRIBUTION WIDTH 13.6 % (11.5-14.5)
[2019-10-09 05:13] LABS: CALCIUM 8.5 mg/dL (8.5-10.1); CREATININE 1.2 mg/dL (0.7-1.3); GFR 59.9; POTASSIUM 4.4 mmol/L (3.5-5.1)
[2019-10-09 05:14] LABS: CHOLESTEROL/HDL RATIO 2.5
[2019-10-09] MEDS: ELECTROLYTE (ICU) PROTOCOL. MC SCH (09:00)
[2019-10-09] MEDS: ALBUTEROL SULFATE 2.5 MG/3 ML NEBU. NEB SCH ×4 (09:04→19:46)
[2019-10-09] MEDS: BUDESONIDE 0.5 MG/2 ML NEBU. NEB SCH ×2 (09:04→19:47)
[2019-10-09] MEDS: SENNOSIDES/DOCUSATE 8.6/50MG TABLET. PO SCH ×2 (09:21→20:33)
[2019-10-09] MEDS: FAMOTIDINE 20 MG TABLET. PO SCH ×2 (09:21→20:32)
[2019-10-09] MEDS: METOPROLOL TART IMMED RELEASE 25 MG TABLET. PO SCH ×2 (09:21→20:32)
[2019-10-09] MEDS: ASPIRIN ENTERIC COATED 325 MG TABLET.DR. PO SCH (09:21)
[2019-10-09] MEDS: buPROPion XL 150 MG TAB.ER.24H. PO SCH (09:22)
[2019-10-09] MEDS: FLUTICASONE 50MCG/NASAL SPRAY 16GM BOTTLE. NS SCH (09:22)
[2019-10-09] MEDS: CLOPIDOGREL BISULFATE 75 MG TABLET PO SCH (09:25)
--- NOTE | 2019-10-09 10:01 | NUR ---
SS following for discharge planning. SS reviewed pt chart and discussed with pt RN. Pt is from home with spouse and is currently on room air. Pt had STEMI and having ECHO today. COVID19 negative. Discharge plan is to home when medically ready. SS will continue to follow for discharge planning.
--- NOTE | 2019-10-09 12:24 | PDOC ---
[employer] PROGRESS NOTE Date of Service DOS: DATE: 10/09/19 TIME: 12:18 Chief Complaint Chief Complaint Chest pain STEMI History of Present Illness History of Present Illness 10/09/19 Patient seen and examined in ICU Discussed with RN Discussed with Patient was pleasantly making conversation during visit Patient had a PCI/drug eluting stent placed on LAD yesterday Vitals/I&O Vitals/I&O: Vital Signs Date Time Temp Pulse Resp B/P (MAP) Pulse Ox O2 Delivery O2 Flow Rate FiO2 10/09/19 11:00 75 132/83 (99) 96 Room Air 10/09/19 10:00 98.3 98.3 10/09/19 06:00 16 10/08/19 13:22 2.0 I & O 10/08/19 10/08/19 10/09/19 15:00 23:00 07:00 Intake Total 100 ml 900 ml 680 ml Output Total 150 ml 1100 ml 1275 ml Balance -50 ml -200 ml -595 ml Physical Exam General: Alert, Oriented X3 Heart: Regular rate Abdomen: Soft Extremities: No edema Skin: No significant lesion Labs Labs: Laboratory Tests Test 10/09/19 04:20 White Blood Count 8.0 x10^3/uL (4.0-11.0) Red Blood Count 4.69 x10^6/uL (4.30-5.70) Hemoglobin 13.9 g/dL (13.0-17.5) Hematocrit 42.1 % (39.0-53.0) Mean Corpuscular Volume 90 fL (79-100) Mean Corpuscular Hemoglobin 30 pg (25-35) Mean Corpuscular Hemoglobin Concent 33 g/dL (31-37) Red Cell Distribution Width 13.6 % (11.5-14.5) Platelet Count 217 x10^3/uL (140-400) Neutrophils (%) (Auto) 59 % (31-73) Lymphocytes (%) (Auto) 27 % (24-48) Monocytes (%) (Auto) 10 % (0-9) Eosinophils (%) (Auto) 4 % (0-3) Basophils (%) (Auto) 0 % (0-3) Neutrophils # (Auto) 4.7 x10^3/uL (1.8-7.7) Lymphocytes # (Auto) 2.2 x10^3/uL (1.0-4.8) Monocytes # (Auto) 0.8 x10^3/uL (0.0-1.1) Eosinophils # (Auto) 0.3 x10^3/uL (0.0-0.7) Basophils # (Auto) 0.0 x10^3/uL (0.0-0.2) Sodium Level 137 mmol/L (136-145) Potassium Level 4.4 mmol/L (3.5-5.1) Chloride Level 103 mmol/L (98-107) Carbon Dioxide Level 27 mmol/L (21-32) Anion Gap 7 (6-14) Blood Urea Nitrogen 14 mg/dL (8-26) Creatinine 1.2 mg/dL (0.7-1.3) Estimated GFR (Cockcroft-Gault) 59.9 Glucose Level 90 mg/dL (70-99) Calcium Level 8.5 mg/dL (8.5-10.1) Triglycerides Level 72 mg/dL (0-150) Cholesterol Level 140 mg/dL (0-200) LDL Cholesterol, Calculated 70 mg/dL (0-100) VLDL Cholesterol, Calculated 14 mg/dL (0-40) Non-HDL Cholesterol Calculated 84 mg/dL (0-129) HDL Cholesterol 56 mg/dL (40-60) Cholesterol/HDL Ratio 2.5 Assessment and Plan Assessmemt and Plan Problems Medical Problems: (1) Acute ST elevation myocardial infarction (STEMI) of posterior wall Status: Acute (2) Chest pain Status: Acute Assessment: STEMI Chest pain Plan: Continue ICU monitoring Full code Cardiac monitoring DVT prophylaxis Await for cardiology input regarding discharge Await echo results Appreciate subspecialist input Comment Review of Relevant I have reviewed the following items tomas (where applicable) has been applied. Medications: Current Medications Medications (Trade) Dose Ordered Sig/Jade Route PRN Reason Start Time Stop Time Status Last Admin Dose Admin Midazolam HCl (Versed) 2 mg 1X ONCE IV 10/08/19 13:00 10/08/19 13:01 DC 10/08/19 13:15 Fentanyl Citrate (Fentanyl 2ml Vial) 100 mcg 1X ONCE IV 10/08/19 13:00 10/08/19 13:01 DC 10/08/19 13:15 Iodixanol (Visipaque 320) 100 ml 1X ONCE IART 10/08/19 13:00 10/08/19 13:01 DC 10/08/19 13:14 Bivalirudin (Angiomax) 250 mg 1X ONCE IV 10/08/19 13:00 10/08/19 13:01 DC 10/08/19 13:15 Lidocaine HCl (Lidocaine 1% 20ml Vial) 20 ml 1X ONCE INJ 10/08/19 13:00 10/08/19 13:01 DC 10/08/19 13:14 Clopidogrel Bisulfate (Plavix) 600 mg 1X ONCE PO 10/08/19 13:15 10/08/19 13:16 DC 10/08/19 13:14 Famotidine (Pepcid) 20 mg BID PO 10/08/19 21:00 10/09/19 09:21 Info (Icu Electrolyte Protocol) 1 ea DAILY MC 10/09/19 09:00 10/09/19 09:00 Acetaminophen/ Hydrocodone Bitart (Lortab 5/325) 1 tab PRN Q4HRS PRN PO MILD PAIN, 2ND CHOICE 10/08/19 13:30 10/09/19 09:30 Senna/Docusate Sodium (Senna Plus) 1 tab BID PO 10/08/19 21:00 10/09/19 09:21 Sodium Chloride 1,000 ml @ 100 mls/hr Q10H IV 10/08/19 13:33 10/08/19 23:32 DC 10/08/19 13:33 Aspirin (Ecotrin) 325 mg DAILYWBKFT PO 10/09/19 08:00 10/09/19 09:21 Clopidogrel Bisulfate (Plavix) 75 mg DAILYWBKFT PO 10/09/19 08:00 10/09/19 09:25 Atenolol (Tenormin) 12.5 mg BID PO 10/08/19 14:45 10/08/19 17:25 DC 10/08/19 14:45 Bupropion HCl (Wellbutrin Xl) 150 mg DAILYWBKFT PO 10/09/19 08:00 10/09/19 09:22 Montelukast Sodium (Singulair) 10 mg HS PO 10/08/19 21:00 10/08/19 20:53 Atorvastatin Calcium (Lipitor) 80 mg QHS PO 10/08/19 21:00 10/08/19 20:53 Fluticasone Propionate (Flonase) 2 spray DAILY NS 10/09/19 09:00 10/09/19 09:22 Zolpidem Tartrate (Ambien) 5 mg PRN QHS PRN PO INSOMNIA 10/08/19 16:45 10/08/19 23:57 Albuterol Sulfate (Ventolin Neb Soln) 2.5 mg Q6HRS NEB 10/08/19 18:00 10/09/19 09:04 Budesonide (Pulmicort) 0.5 mg RTBID NEB 10/08/19 20:00 10/09/19 09:04 Metoprolol Tartrate (Lopressor) 12.5 mg BID PO 10/08/19 21:00 10/09/19 09:21 Aspirin (Aspirin Chewable) 324 mg 1X ONCE PO 10/08/19 18:30 10/08/19 18:31 DC 10/08/19 18:27 Justicifation of Admission Dx: Justifications for Admission: Justification of Admission Dx: Yes ID: Acute STEMI MYRON GANN III DO Oct 09, 2019 12:24
--- NOTE | 2019-10-09 15:21 | CARD ---
MR#: [id number] Date of Study: 10/09/2019 Ordering Physician: TERRENCE DE LA GARZA, Referring Physician: TERRENCE DE LA GARZA, Tech: Rajani Stephens APPROVED REPORT EXAM: Two-dimensional and M-mode echocardiogram with Doppler and color Doppler. Other Information Quality : AverageHR: 67bpm Technically limited study due to body habitus. INDICATION Acute AR STEMI 2D DIMENSIONS Left Atrium(2D)4.3 (1.6-4.0cm)IVSd1.2 (0.7-1.1cm) Aortic Root(2D)3.6 (2.0-3.7cm)LVDd4.7 (3.9-5.9cm) LVOT Diameter2.2 (1.8-2.4cm)PWd1.3 (0.7-1.1cm) LVDs3.5 (2.5-4.0cm)FS (%) 24.5 % SV49.5 mlLVEF(%)48.7 (>50%) Aortic Valve AoV Peak Vick.122.3cm/sAoV VTI21.7cm AO Peak GR.6.0mmHgLVOT VTI 18.13cm AO Mean GR.3mmHg Mitral Valve MV E Peak Gr.5mmHgMV E Mean Gr.1mmHg TDI Lateral E' P. V6.56cm/sMedial E' P. V6.89cm/s Tricuspid Valve TR P. [id number]/sRAP [id number] TR Peak Gr.52azByBUNO23adPz Pulmonary Vein S1 Zjavmmll90.6cm/sS2 Jsdzqaeh54.79cm/s D2 Avyqdwwj78.8cm/sPVa [id number] LEFT VENTRICLE The left ventricle is normal size. There is mild concentric left ventricular hypertrophy. The systoli c function is low normal. EF 50% There is slight global hypokinesis of the left ventricle. Transmitra l Doppler flow pattern is Grade II-pseudonormal filling dynamics. RIGHT VENTRICLE The right ventricle is normal size. There is normal right ventricular wall thickness. The right ventr icular systolic function is normal. ATRIA The left atrium is borderline dilated. The right atrium size is normal. The interatrial septum is int act with no evidence for an atrial septal defect or patent foramen ovale as noted on 2-D or Doppler i norm. AORTIC VALVE The aortic valve is normal in structure and function. Doppler and Color Flow revealed trace aortic re gurgitation. There is no significant aortic valvular stenosis. Calculated aortic valve area is 3.3 cm 2 with maximum pressure gradient of 6 mmHg and mean pressure gradient of 3 mmHg. MITRAL VALVE The mitral valve is normal in structure and function. There is no evidence of mitral valve prolapse. There is no mitral valve stenosis. Doppler and Color-flow revealed trace mitral regurgitation. TRICUSPID VALVE The tricuspid valve is normal in structure and function. Doppler and Color Flow revealed trace tricus pid regurgitation with an estimated PAP of 30 mmHg. There is no tricuspid valve stenosis. PULMONIC VALVE The pulmonic valve is not well visualized. Doppler and Color Flow revealed trace pulmonic valvular re gurgitation. There is no pulmonic valvular stenosis. GREAT VESSELS The aortic root is normal in size. The IVC is normal in size and collapses >50% with inspiration. PERICARDIAL EFFUSION There is no evidence of significant pericardial effusion. Critical Notification Critical Value: No <Conclusion> The systolic function is low normal. EF 50% There is slight global hypokinesis of the left ventricle. Signed by : Abdiaziz Hightower, Electronically Approved : 10/09/2019 15:20:49
--- NOTE | 2019-10-09 17:22 | PDOC ---
PROGRESS NOTES Date of Service: DATE: 10/09/19 TIME: 17:20 Subjective Subjective Feeling much better. Denied any chest pain. Objective Objective Vital Signs Date Time Temp Pulse Resp B/P (MAP) Pulse Ox O2 Delivery O2 Flow Rate FiO2 10/09/19 17:16 Room Air 10/09/19 15:00 98.2 67 18 124/76 (92) 96 98.2 10/08/19 13:22 2.0 Intake and Output 10/09/19 07:00 Intake Total 1680 ml Output Total 2525 ml Balance -845 ml Intake Oral 1130 ml IV Total 550 ml Output Urine Total 2525 ml Physical Exam Abdomen: Soft Heart: Regular rate Extremities: No edema General: Alert, Oriented X3 HEENT: Atraumatic Lungs: Clear to auscultation Neuro: Normal speech Psych/Mental Status: Mood NL Skin: No significant lesion Assessment Assessment 1. Acute posterior wall myocardial infarction. Cardiac catheterization yesterday showed patent LAM to LAD, occluded MITCHELL to LCx, nonobstructive stenosis involving RCA and a critical 99% stenosis involving the very proximal segment of LCx. He underwent successful PCI/drug-eluting stent placement. Telemetry did not show any significant arrhythmias. 2D echo showed LVEF 50%. Continue dual antiplatelet therapy and secondary prevention measures. 2. Hypertension: Controlled 3. Hyperlipidemia: Statins Plan for DC home tomorrow. Plan Plan of Care Problems Medical Problems: (1) Acute ST elevation myocardial infarction (STEMI) of posterior wall Status: Acute (2) Chest pain Status: Acute Comment Review of Relevant I have reviewed the following items tomas (where applicable) has been applied. Labs Laboratory Tests Test 10/09/19 04:20 White Blood Count 8.0 x10^3/uL (4.0-11.0) Red Blood Count 4.69 x10^6/uL (4.30-5.70) Hemoglobin 13.9 g/dL (13.0-17.5) Hematocrit 42.1 % (39.0-53.0) Mean Corpuscular Volume 90 fL (79-100) Mean Corpuscular Hemoglobin 30 pg (25-35) Mean Corpuscular Hemoglobin Concent 33 g/dL (31-37) Red Cell Distribution Width 13.6 % (11.5-14.5) Platelet Count 217 x10^3/uL (140-400) Neutrophils (%) (Auto) 59 % (31-73) Lymphocytes (%) (Auto) 27 % (24-48) Monocytes (%) (Auto) 10 % (0-9) Eosinophils (%) (Auto) 4 % (0-3) Basophils (%) (Auto) 0 % (0-3) Neutrophils # (Auto) 4.7 x10^3/uL (1.8-7.7) Lymphocytes # (Auto) 2.2 x10^3/uL (1.0-4.8) Monocytes # (Auto) 0.8 x10^3/uL (0.0-1.1) Eosinophils # (Auto) 0.3 x10^3/uL (0.0-0.7) Basophils # (Auto) 0.0 x10^3/uL (0.0-0.2) Sodium Level 137 mmol/L (136-145) Potassium Level 4.4 mmol/L (3.5-5.1) Chloride Level 103 mmol/L (98-107) Carbon Dioxide Level 27 mmol/L (21-32) Anion Gap 7 (6-14) Blood Urea Nitrogen 14 mg/dL (8-26) Creatinine 1.2 mg/dL (0.7-1.3) Estimated GFR (Cockcroft-Gault) 59.9 Glucose Level 90 mg/dL (70-99) Calcium Level 8.5 mg/dL (8.5-10.1) Triglycerides Level 72 mg/dL (0-150) Cholesterol Level 140 mg/dL (0-200) LDL Cholesterol, Calculated 70 mg/dL (0-100) VLDL Cholesterol, Calculated 14 mg/dL (0-40) Non-HDL Cholesterol Calculated 84 mg/dL (0-129) HDL Cholesterol 56 mg/dL (40-60) Cholesterol/HDL Ratio 2.5 Medications Current Medications Albuterol Sulfate (Ventolin Neb Soln) 2.5 mg Q6HRS NEB Last administered on 10/09/19at 09:04; Start 10/08/19 at 18:00 Aspirin (Aspirin Chewable) 324 mg 1X ONCE PO Last administered on 10/08/19at 18:27; Start 10/08/19 at 18:30; Stop 10/08/19 at 18:31; Status DC Aspirin (Ecotrin) 325 mg DAILYWBKFT PO Last administered on 10/09/19at 09:21; Start 10/09/19 at 08:00 Atorvastatin Calcium (Lipitor) 40 mg QHS PO ; Start 10/08/19 at 21:00; Stop 10/08/19 at 16:52; Status DC Atorvastatin Calcium (Lipitor) 80 mg QHS PO Last administered on 10/08/19at 20:53; Start 10/08/19 at 21:00 Budesonide (Pulmicort) 0.5 mg RTBID NEB Last administered on 10/09/19at 09:04; Start 10/08/19 at 20:00 Bupropion HCl (Wellbutrin Xl) 150 mg DAILYWBKFT PO Last administered on 09:22; Start 10/09/19 at 08:00 Clopidogrel Bisulfate (Plavix) 75 mg DAILYWBKFT PO Last administered on 10/09/19at 09:25; Start 10/09/19 at 08:00 Famotidine (Pepcid) 20 mg BID PO ; Start 10/08/19 at 21:00; Stop 10/08/19 at 17:25; Status DC Famotidine (Pepcid) 20 mg BID PO Last administered on 10/09/19 09:21; Start 10/08/19 at 21:00 Fluticasone Propionate (Flonase) 2 spray DAILY NS Last administered on 10/09/19 09:22; Start 10/09/19 at 09:00 Info (Icu Electrolyte Protocol) 1 ea DAILY MC Last administered on 10/09/19 09:00; Start 10/09/19 at 09:00 Metoprolol Tartrate (Lopressor) 12.5 mg BID PO Last administered on 10/09/19at 09:21; Start 10/08/19 at 21:00 Montelukast Sodium (Singulair) 10 mg HS PO Last administered on 10/08/19at 20:53; Start 10/08/19 at 21:00 Non-Formulary Medication (Fluticasone/ Salmeterol (Advair 500-50 Diskus)) 1 puff BID IH ; Start 10/08/19 at 21:00; Status UNV Senna/Docusate Sodium (Senna Plus) 1 tab BID PO Last administered on 8/10/20at 09:21; Start 10/08/19 at 21:00 Vitals/I & O Vital Sign - Last 24 Hours 10/08/19 10/08/19 10/08/19 10/08/19 18:00 19:00 20:00 20:00 Pulse 76 68 69 Resp 18 16 15 B/P (MAP) 119/78 (92) 112/74 (87) 140/87 (104) Pulse Ox 98 98 100 O2 Delivery Room Air Room Air Room Air Room Air 10/08/19 10/08/19 10/08/19 10/08/19 20:06 20:09 20:55 21:00 Temp 99.1 99.1 Pulse 81 79 Resp 18 B/P (MAP) 114/73 121/85 (97) Pulse Ox 97 97 96 O2 Delivery Room Air Room Air Room Air 10/08/19 10/08/19 10/08/19 10/08/19 21:26 22:00 22:30 23:00 Pulse 74 68 Resp 18 16 16 14 B/P (MAP) 136/82 (100) 137/80 (99) Pulse Ox 96 94 96 97 O2 Delivery Room Air Room Air Room Air Room Air 10/09/19 10/09/19 10/09/19 10/09/19 00:00 00:00 01:00 01:32 Temp 98.9 98.9 Pulse 62 72 Resp 15 16 21 B/P (MAP) 135/78 (97) 133/79 (97) Pulse Ox 94 95 98 O2 Delivery Room Air Room Air Room Air Room Air 10/09/19 10/09/19 10/09/19 10/09/19 02:00 02:40 03:00 04:00 Temp 98.9 98.9 Pulse 61 59 63 Resp 13 15 13 12 B/P (MAP) 127/77 (94) 131/72 (91) 132/83 (99) Pulse Ox 97 97 97 95 O2 Delivery Room Air Room Air Room Air Room Air 10/09/19 10/09/19 10/09/19 10/09/19 04:00 05:00 06:00 07:00 Temp 98.7 98.7 Pulse 66 60 63 Resp 20 16 B/P (MAP) 121/82 (95) 128/77 (94) 121/76 (91) Pulse Ox 94 96 98 O2 Delivery Room Air Room Air Room Air Room Air 10/09/19 10/09/19 10/09/19 10/09/19 08:00 08:00 09:00 09:04 Pulse 74 75 B/P (MAP) 127/76 (93) 120/72 (88) Pulse Ox 94 95 97 O2 Delivery Room Air Room Air Room Air Room Air 10/09/19 10/09/19 10/09/19 10/09/19 09:21 09:30 10:00 10:30 Temp 98.3 98.3 Pulse 75 80 B/P (MAP) 120/72 121/73 (89) Pulse Ox 97 94 O2 Delivery Room Air Room Air Room Air 10/09/19 10/09/19 10/09/19 10/09/19 11:00 12:00 12:00 13:00 Pulse 75 67 69 B/P (MAP) 132/83 (99) 138/85 (102) 107/65 (79) Pulse Ox 96 98 97 O2 Delivery Room Air Room Air Room Air Room Air 10/09/19 10/09/19 10/09/19 10/09/19 13:45 13:45 15:00 17:16 Temp 99.0 98.2 99.0 98.2 Pulse 67 67 Resp 18 18 B/P (MAP) 127/78 (94) 124/76 (92) Pulse Ox 95 96 O2 Delivery Room Air Room Air Room Air Room Air Intake and Output 10/08/19 10/08/19 10/09/19 15:00 23:00 07:00 Intake Total 100 ml 900 ml 680 ml Output Total 150 ml 1100 ml 1275 ml Balance -50 ml -200 ml -595 ml TERRENCE DE LA GARZA MD Oct 09, 2019 17:22
[2019-10-09] MEDS ORDERED: POLYETHYLENE GLYCOL 3350 17 GM PACKET. PO PRN (19:00)
[2019-10-09] MEDS: ATORVASTATIN CALCIUM 40 MG TABLET. PO SCH (20:32)
[2019-10-09] MEDS: MONTELUKAST SODIUM 10 MG TABLET. PO SCH (20:32)
[2019-10-09] MEDS: ZOLPIDEM 5 MG TABLET. PO PRN (21:15)
[2019-10-10 02:30] VITALS: BP 122/79
[2019-10-10 07:00] VITALS: BP 114/72
[2019-10-10] MEDS: BUDESONIDE 0.5 MG/2 ML NEBU. NEB SCH (07:30)
[2019-10-10] MEDS: ALBUTEROL SULFATE 2.5 MG/3 ML NEBU. NEB SCH (07:30)
[2019-10-10] MEDS: ASPIRIN ENTERIC COATED 325 MG TABLET.DR. PO SCH (08:18)
[2019-10-10] MEDS: CLOPIDOGREL BISULFATE 75 MG TABLET PO SCH (08:18)
[2019-10-10] MEDS: buPROPion XL 150 MG TAB.ER.24H. PO SCH (08:18)
[2019-10-10] MEDS: SENNOSIDES/DOCUSATE 8.6/50MG TABLET. PO SCH (08:19)
[2019-10-10] MEDS: FAMOTIDINE 20 MG TABLET. PO SCH (08:23)
[2019-10-10] MEDS: METOPROLOL TART IMMED RELEASE 25 MG TABLET. PO SCH (08:24)
[2019-10-10] MEDS: ELECTROLYTE (ICU) PROTOCOL. MC SCH (09:00)
[2019-10-10] MEDS: FLUTICASONE 50MCG/NASAL SPRAY 16GM BOTTLE. NS SCH (09:00)
[2019-10-10 11:00] VITALS: BP_SYST 135; BP_SYST 97; BP_DIAS 59; BP_DIAS 60
[2019-10-10] MEDS ORDERED: CLOP75TA PO (11:36)
--- NOTE | 2019-10-10 12:13 | PDOC ---
[facility] PROGRESS NOTE Date of Service DOS: DATE: 10/10/19 TIME: 12:04 Chief Complaint Chief Complaint Chest pain STEMI CAD Hyperlipidemia Hypertension Former smoker History of Present Illness History of Present Illness 10/10/19 Patient seen and examined, he is slightly anxious Discussed medication for anxiety Patient had a PCI/drug eluting stent placed on LAD 10/07 Echo showed 48.7% EF Planning to discharge today per cardiology Discussed with RN Discussed with Chart reviewed 10/09/19 Patient seen and examined in ICU Discussed with RN Discussed with Patient was pleasantly making conversation during visit Patient had a PCI/drug eluting stent placed on LAD yesterday Vitals/I&O Vitals/I&O: Vital Signs Date Time Temp Pulse Resp B/P (MAP) Pulse Ox O2 Delivery O2 Flow Rate FiO2 10/10/19 08:24 79 114/72 10/10/19 08:00 Room Air 10/10/19 07:32 98 10/10/19 07:00 97.7 16 97.7 I & O 10/09/19 10/09/19 10/10/19 15:00 23:00 07:00 Intake Total 100 ml 400 ml Output Total 100 ml 300 ml Balance 0 ml 100 ml Physical Exam General: Alert, Oriented X3, Cooperative, No acute distress Heart: Regular rate Abdomen: Soft, No tenderness, No masses Extremities: No clubbing, No cyanosis, No edema Skin: No rashes, No breakdown, No significant lesion Assessment and Plan Assessmemt and Plan Problems Medical Problems: (1) Acute ST elevation myocardial infarction (STEMI) of posterior wall Status: Acute (2) Chest pain Status: Acute ASSESSMENT Chest pain STEMI CAD Hyperlipidemia Hypertension Former smoker PLAN Probable discharge today pending cardiology Telemetry monitoring DVT prophylaxis Home meds Full code Appreciate cardiology input Comment Review of Relevant I have reviewed the following items tomas (where applicable) has been applied. Medications: Current Medications Medications (Trade) Dose Ordered Sig/Jade Route PRN Reason Start Time Stop Time Status Last Admin Dose Admin Polyethylene Glycol (miraLAX PACKET) 17 gm PRN DAILY PRN PO CONSTIPATION 10/09/19 19:00 10/10/19 06:18 Albuterol Sulfate (Ventolin Neb Soln) 2.5 mg RTBID NEB 10/09/19 20:00 10/10/19 07:30 Justicifation of Admission Dx: Justifications for Admission: Justification of Admission Dx: Yes HI: Acute STEMI MYRON GANN III DO Oct 10, 2019 12:13
--- NOTE | 2019-10-10 12:19 | PDOC ---
J[facility] 10/10/19 1219: CARDIO Progress Notes Date and Time Date of Service 10/10/19 Time of Evaluation 1220 Subjective Subjective: No Chest Pain, No shortness of breath, No Palpitations Vitals Vitals Vital Signs Date Time Temp Pulse Resp B/P (MAP) Pulse Ox O2 Delivery O2 Flow Rate FiO2 10/10/19 08:24 79 114/72 10/10/19 08:00 Room Air 10/10/19 07:32 98 10/10/19 07:00 97.7 16 97.7 Weight Weight [ ] Input and Output Intake and Output Intake and Output 10/10/19 07:00 Intake Total 500 ml Output Total 400 ml Balance 100 ml Intake Oral 500 ml Output Urine Total 400 ml Physical Exam HEENT: Neck Supple W Full Motion Chest: Symmetric LUNGS: Clear to Auscultation Heart: S1S2, RRR, no murmurs Abdomen: Soft N/T Extremities: No Edema Neurology: alert, oriented, follow commands Assessment Assessment 1. Acute posterior wall myocardial infarction. Cardiac catheterization yesterday showed patent LAM to LAD, occluded MITCHELL to LCx, nonobstructive stenosis involving RCA and a critical 99% stenosis involving the very proximal segment of LCx. He underwent successful PCI/Bola to the LCx. Echo showed LVEF 50%. 2. Hypertension: Controlled 3. Hyperlipidemia: Statins Recommendations Secondary prevention including DAPT with ASA/Plavix. Risk stratification modification Cardiac rehab referral Follow up in our office with Dr. De La Garza as scheduled. ASA not listed on discharge meds list. Contacted patient and verified he is to take Aspirin 325 mg daily for 1 month followed by 81 mg daily. Patient verified any understanding. Justicifation of Admission Dx: Justifications for Admission: Justification of Admission Dx: Yes CA: Acute STEMI TERRENCE DE LA GARZA MD 10/10/19 1937: CARDIO Progress Notes Assessment Assessment Patient seen and examined. Agree with DISTRIBUTION ANALYST's assessment and plan. s/p PCI/BOLA to LCX, chest pain free. Tele did not show any arrhythmias. LVEF 50% Continue DAPT. OK for DC and F/U with primary tool grinding technician at [facility] ERMA FENG APRN Oct 10, 2019 12:19 TERRENCE DE LA GARZA MD Oct 10, 2019 19:37
--- NOTE | 2019-10-10 15:32 | NUR ---
Discharge Note: HYUN JENKINS [address] Discharge instructions and discharge home medications reviewed with patient and a copy given. All questions have been answered and understanding verbalized. The following instructions and handouts were given: Home meds as directed: ASA, clopidogrel, statin, metoprolol Angioseal pamphlet. Handout -instructions after angioplasty May shower, no tub baths Watch out for fever, bleeding, swelling on the site Follow up with Dr. Hanley on November 22 1015AM Follow up with PCP in a week Discontinued lines and drains: peripheral IV intact, patient tolerated removal, no omplications noted. Patient discharged to home via wheelchair accompanied by family member at 1513.
--- NOTE | 2019-10-10 15:42 | NUR ---
called [facility] pharmacy at 1542 for discharge prescriptions, metoprolol and aspirin.
[2019-10-10] MEDS ORDERED: ASPI325T8 PO (16:45)
--- NOTE | 2019-10-19 12:27 | DS ---
DATE OF DISCHARGE: 10/10/2019 ADMISSION DIAGNOSIS: Acute myocardial infarction. DISCHARGE DIAGNOSIS: Resolving acute myocardial infarction, he got 1 new stent. HOSPITAL COURSE: The patient is a pleasant middle-aged male who has known coronary artery disease. He had an old bypass surgery. He was admitted. We consulted Cardiology. He was taken to the [facility] and got 1 new stent. His EF is 48.1%. Clinically, he looked great. We discharged to home. DISPOSITION: Home. ACTIVITY: As tolerated. DIET: Low sodium. MEDICATIONS: Please see the MRAD. TOTAL TIME: 32 minutes. KRYSL Ling GANN DO DR: NAHID/raymond JOB#: [id number] / [id number]
== END 2019-10-10 15:17 | disposition home or self-care (01) | DRG 246 ==
LOC: ER 11:36 → 1 WEST ICU 11:50 → MERGE 11:50 → 2 NORTH 10-09 13:32
PROVIDERS: ADMIT Family Medicine; ATTEND Family Medicine
PROC: 027034Z Dilation of Coronary Artery, One Artery with Drug-eluting Intraluminal Device, Percutaneous Approach (ICD-10-PCS; principal; 2019-10-08)
PROC: 4A023N7 Measurement of Cardiac Sampling and Pressure, Left Heart, Percutaneous Approach (ICD-10-PCS; 2019-10-08)
PROC: B211YZZ Fluoroscopy of Multiple Coronary Arteries using Other Contrast (ICD-10-PCS; 2019-10-08)
PROC: B218YZZ Fluoroscopy of Left Internal Mammary Bypass Graft using Other Contrast (ICD-10-PCS; 2019-10-08)
PROC: B217YZZ Fluoroscopy of Right Internal Mammary Bypass Graft using Other Contrast (ICD-10-PCS; 2019-10-08)
PROC: B310YZZ Fluoroscopy of Thoracic Aorta using Other Contrast (ICD-10-PCS; 2019-10-08)
DX: T82.898A Other specified complication of vascular prosthetic devices, implants and grafts, initial encounter (principal); I21.29 ST elevation (STEMI) myocardial infarction involving other sites; N17.0 Acute kidney failure with tubular necrosis; I50.31 Acute diastolic (congestive) heart failure; E78.5 Hyperlipidemia, unspecified; I25.10 Atherosclerotic heart disease of native coronary artery without angina pectoris; Y83.8 Other surgical procedures as the cause of abnormal reaction of the patient, or of later complication, without mention of misadventure at the time of the procedure; Z82.49 Family history of ischemic heart disease and other diseases of the circulatory system; Z87.891 Personal history of nicotine dependence; Z95.1 Presence of aortocoronary bypass graft; Z79.899 Other long term (current) drug therapy; Y92.89 Other specified places as the place of occurrence of the external cause; Z03.818 Encounter for observation for suspected exposure to other biological agents ruled out; I11.0 Hypertensive heart disease with heart failure
CPT/HCPCS: 36415; 71045; 80048; 80053; 80061; 83880; 84443; 84484; 85025; 85610; 85730; 87426; 92941; 93306; 93458; 93567; 94640; 94760; 96374; 96375; 99152; 99153; 99291; C1725; C1760; C1769; C1874; C1887; C1892; G0269; J0583; J1644; J2250; J2270; J2405; J3010; J3490; Q9967; C1771; G0378; J7613; J7626; U0003-CS

== ENCOUNTER → 2020-04-29 | Outpatient (CLI) | payer MEDICARE ==
[2020-01-28 15:00] VITALS: BP 156/94
[~2020-04-29] MED LIST: ACET1TAB33 PO; ALBU2.5V8 IH; ASPI-886 PO; ASPI325T8 PO; ATEN25TA PO; BUPR150T15 PO; CART1TAB4 PO; CETI10TA16 PO; CLOP75TA PO; DOXY100T PO; FAMO-63 PO; FAMO10TA69 PO; FLUT1DIS5 IH; FLUT9.9S NS; KRIL1CAP10 PO; LIPITOR80 MG PO; METO-239 PO; METO25TA4 PO; MONT10TA49 PO; MULT-697 PO; MULT1CAP12 PO; TURM500C4 PO; UBID100T5 PO
--- NOTE | 2020-04-29 12:05 | RAD ---
EXAM: CT Chest without IV contrast INDICATION: Reason: LUNG NODULE / Spl. Instructions: / History: TECHNIQUE: Multi-detector row CT images were acquired from the thoracic inlet through the upper abdo men without the use of IV contrast. Sagittal and coronal images were acquired from the transaxial lashay a. All CT scans performed at this facility utilize dose optimization techniques as appropriate to the exam, including the following: Automated exposure control and adjustment of the mA and/or KV accordi ng to patient size (this includes techniques or standardized protocols for targeted exams where dose is indication/reason for exam). COMPARISON: CT pulmonary angiogram of 01/27/2020 FINDINGS: The absence of IV contrast limits evaluation of soft tissue pathology. CARDIOVASCULAR: Post CABG surgical changes. 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 No intramural hematoma. Normal heart size. No pericardial effusion. MEDIASTINUM & BRANDON: No adenopathy or masses. LUNGS: Marked interval improvement in patchy groundglass opacities with minimal residual opacities in the right lower lobe. The lung nodules identified at the right lung apex and in the posterior right upper lobe abutting the fissure a markedly decreased, nearly fully resolved with only minimal residua l groundglass attenuation opacities still present (image 12 series 2 on the anterior apical nodule an d image 18 series 2 for the posterior right upper lobe nodule). No developing lung mass or suspicious pulmonary nodules identified. PLEURAL SPACE: No pleural effusions or pneumothorax. OSSEOUS & SOFT TISSUE: Unremarkable ABDOMEN: The visualized portions of the upper abdomen are unremarkable. IMPRESSION: 1. Interval improvement in groundglass opacities and pulmonary nodules which were likely inflammatory /infectious. No findings suspicious for lung malignancy. If the patient is considered at high risk fo r lung cancer, consider enrollment in a [place] lung cancer screening program. 2. 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 Electronically signed by: Jaz Hightower MD (04/29/2020 12:02 PM) [id number]
== END ==
LOC: CT 11:23
PROVIDERS: ATTEND Internal Medicine Critical Care Medicine
DX: R91.1 Solitary pulmonary nodule (principal); I77.810 Thoracic aortic ectasia
CPT/HCPCS: 71250